=== PATIENT | male | born 1985 | race Caucasian/White ===

== ENCOUNTER 2018-11-04 18:55 | Emergency (ER) | payer OTHER ==
--- NOTE | 2018-11-04 21:09 | ED ---
General Adult HPI - General Source: patient, family, RN notes reviewed Mode of arrival: ambulatory Limitations: no limitations <Bernard Conway - Last Filed: 11/04/18 21:00> <Sidney Nayak - Last Filed: 11/04/18 21:27> - General Chief complaint: Skin/Abscess/Foreign Body Stated complaint: Lump on neck - History of Present Illness Initial comments: 33-year-old male patient presents to ED with abscess on lateral neck which he has had for 10 days. This first time patient evaluated for this issue. Patient states that approximate 4 days ago he tried to pop it with a needle, did not christen any fluid. Patient denies any other chronic medical conditions. Patient denies fever chills, nausea vomiting diarrhea, shortness of breath, chest pain, abdominal pain. Systemic: Pt denies fatigue, myalgia, fever/chills, rash. Pt denies weakness, night sweats, weight loss. Neuro: Pt denies headache, visual disturbances, syncope or pre-syncope. HEENT: Pt denies ocular discharge or irritation, otalgia, rhinorrhea, pharyngitis or notable lymphadenopathy. Cardiopulmonary: Pt denies chest pain, SOB, heart palpitations, dyspnea on exertion. Abdominal/GI: Pt denies abdominal pain, n/v/d. : Pt denies dysuria, burning w/ urination, frequency/urgency. Denies new onset urinary or bowel incontinence. MSK: Pt denies myalgia, loss of strength or function in extremities. Neuro: Pt denies new onset weakness, paresthesias. (Sidney Nayak) - Related Data Home Medications Medication Instructions Recorded Confirmed No Known Home Medications 07/14/15 07/14/15 Allergies Allergy/AdvReac Type Severity Reaction Status Date / Time latex Allergy Rash/Hives Verified 11/04/18 19:09 venom-honey bee Allergy Swelling Verified 11/04/18 19:09 [bee venom (honey bee)] Review of Systems ROS Other: All systems not noted in ROS Statement are negative. <Bernard Conway - Last Filed: 11/04/18 21:00> ROS Other: All systems not noted in ROS Statement are negative. <Sidney Nayak - Last Filed: 11/04/18 21:27> ROS Statement: Those systems with pertinent positive or pertinent negative responses have been documented in the HPI. 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 HEENT: NC/AT, trachea midline, neck supple, no lymphadenopathy. Posterior pharynx non erythematous, without exudates. External ears appear normal, without discharge. Mucous membranes moist. Eyes PERRLA, EOM intact. There is no scleral icterus. No pallor noted. Approximately golf full-sized abscess noted on left lateral neck. Erythematous, no drainage noted. Cardiopulmonary: RRR, no murmurs, rubs or gallops, no JVD noted. Lungs CTAB in anterior and posterior garland. No peripheral edema. Abdominal exam: Abdomen soft and non-distended. Abdomen non-tender to palpation in all 4 quadrants. Bowel sounds active in LLQ. No hepatosplenomegaly. No ecchymosis Neuro: CN II-XII grossly intact. No nuchal rigidity. MSK: No posterior calf tenderness bilaterally, homans sign negative bilaterally. Posterior tibialis and radial pulse +2 bilaterally. (Sidney Nayak) Vital Signs 11/04/18 19:06 Temperature 98.4 F Pulse Rate 87 Respiratory 16 Rate Blood Pressure 143/88 O2 Sat by Pulse 98 Oximetry Medical Decision Making <Bernard Conway - Last Filed: 11/04/18 21:00> <Sidney Nayak - Last Filed: 11/04/18 21:27> - Medical Decision Making This is a 33-year-old male who presents with a large abscess on the right side of his neck. The patient reports he tried to scratch it with a needle but did not drain. This been there for the better part of one week. I discussed the case with our ENT doctor who recommends that the patient be sent to a larger facility where vascular can be on hand. Patient needs incision and drainage. While in emergency room the patient was given 2 Bactrim DS tablets. Past history does not include any MRSA infections or other problems. I discussed the case with the emergency room at [facility]. He accepts the patient for evaluation. The patient be driven down by private car. No respiratory distress. Dr. Conway (Bernard Conway) This is a 33-year-old male with no pertinent past medical history who presents with a large abscess on the left side of his neck. Physical exam displayed abscess, no other acute pathological findings. Attending physician Dr. Conway was contacted, Dr. Conway evaluated patient. Dr. Conway contacted on-call ENT of [facility]. After discussion the patient will be discharged and then urgently present to [facility] via private car. Patient is agreeable to this plan. Patient given 2 Bactrim double strength tablets while in ED. Case discussed at length with Dr. Conway. Patient to follow-up with PCP in 1-2 days posttreatment at [facility]. (Sidney Nayak) Disposition <Bernard Conway - Last Filed: 11/04/18 21:00> Is patient prescribed a controlled substance at d/c from ED?: No Time of Disposition: 21:27 <Sidney Nayak - Last Filed: 11/04/18 21:27> Clinical Impression: Abscess Disposition: HOME SELF-CARE Condition: Good Instructions: Abscess (ED) Additional Instructions: Pt to present to [facility] Referrals: Myra Lam MD [Primary Care Provider] - 1-2 days
[2018-11-04] MEDS ORDERED: SULFAMETHOX-TMP 800-160MG 1 EACH TAB PO STA (21:10)
[2018-11-04 21:34] VITALS: BP 134/91; PULSE 81; RESP 18; TEMP 98.2
== END 2018-11-04 21:33 | disposition home or self-care (01) ==
LOC: EC 18:55
DX: L02.11 Cutaneous abscess of neck (principal); F17.200 Nicotine dependence, unspecified, uncomplicated; Z91.040 Latex allergy status; Z91.030 Bee allergy status
CPT/HCPCS: 99282